=== PATIENT | female | born 1980 | race Caucasian/White ===

== ENCOUNTER 2021-04-09 17:15 | Emergency (ER) | payer MEDICAID ==
[~2021-04-09] VITALS: Ht 160 cm; Wt 82.0 kg
[2021-04-09 22:39] LABS: CLARITY URINE CLEAR (CLEAR); COLOR URINE YELLOW (YELLOW); KETONES URINE 1+ (NEGATIVE); LEUKOCYTE ESTERASE URINE NEGATIVE (NEGATIVE); NITRITE URINE NEGATIVE (NEGATIVE); OCCULT BLOOD URINE 1+ (NEGATIVE); PROTEIN URINE NEGATIVE (NEGATIVE); SPECIFIC GRAVITY URINE 1.012 (1.005-1.030); UROBILINOGEN URINE 0.2 E.U./dL (0.2-1.0)
[2021-04-10] MEDS ORDERED: CLIN300C12 MT (00:09)
[2021-04-10] MEDS ORDERED: IBUP-2028 MT (00:09)
[2021-04-10 00:46] VITALS: BP 127/84
== END 2021-04-10 00:53 | disposition home or self-care (01) ==
LOC: ER 17:15
DX: L73.9 Follicular disorder, unspecified (principal); I88.9 Nonspecific lymphadenitis, unspecified; Z88.0 Allergy status to penicillin; Z88.2 Allergy status to sulfonamides
CPT/HCPCS: 81003; 81025; 99283